=== PATIENT | male | born 1960 | race African-American/Black ===

== ENCOUNTER 2018-05-02 17:19 | Emergency (ER) | payer OTHER ==
[~2018-05-02] VITALS: Ht 167.6 cm; Wt 86.2 kg
[2018-05-02] MEDS ORDERED: HYDROCHLOROTH12.5 M2 PO (17:50)
[2018-05-02] MEDS ORDERED: PENICILLIN V P500 MG PO (18:01)
[2018-05-02] MEDS ORDERED: MEDROLDOSEPACK PO ×2 (18:02→19:02)
[2018-05-02 19:11] VITALS: BP 150/89
== END 2018-05-02 19:12 | disposition home or self-care (01) ==
LOC: ER 17:19
DX: J02.0 Streptococcal pharyngitis (principal); I10 Essential (primary) hypertension